=== PATIENT | male | born 1990 | race African-American/Black ===

== ENCOUNTER 2023-07-05 12:20 | Emergency (ER) | payer OTHER ==
[~2023-07-05] VITALS: Ht 185.4 cm; Wt 105.0 kg
[2023-07-05 12:26] VITALS: O2SAT 100
[2023-07-05] MEDS: PREDNISONE 20MG TABLET PO ONE (13:53)
[2023-07-05] MEDS: OXYCODONE HCL/ACETAMINOPHEN 5/325MG TABLET PO ONE (13:53)
[2023-07-05] MEDS ORDERED: OXYC-100 MT (15:33)
[2023-07-05] MEDS ORDERED: P20 PO (15:33)
[2023-07-05] MEDS: KETOROLAC 60MG/2ML VIAL IM ONE (16:28)
[2023-07-05 16:29] VITALS: BP 138/57; PULSE 67; RESP 18; TEMP 98.5
== END 2023-07-05 16:31 | disposition home or self-care (01) ==
LOC: ER 12:31 → EDBD 12:31 → ER 16:31
DX: M54.16 Radiculopathy, lumbar region (principal)
CPT/HCPCS: 72110; 96372; 99283; J7512; J1885; Z7610 ×2

== ENCOUNTER 2023-08-17 11:39 | Emergency (ER) | payer MEDICAID, OTHER ==
[~2023-08-17] VITALS: Ht 185.4 cm; Wt 104.0 kg
[~2023-08-17 11:39] MED LIST: OXYC-100 MT; P20 PO
[2023-08-17 11:52] VITALS: O2SAT 98
[2023-08-17] MEDS: IBUPROFEN 400MG TABLET PO ONE (13:48)
[2023-08-17] MEDS: CYCLOBENZAPRINE 10MG TABLET PO ONE (13:48)
[2023-08-17 14:49] VITALS: BP 133/88; PULSE 76; RESP 16; TEMP 98.1
[2023-08-17] MEDS ORDERED: NAPR-681 MT (15:52)
[2023-08-17] MEDS ORDERED: CYCL10TA21 MT (15:52)
== END 2023-08-17 16:14 | disposition home or self-care (01) ==
LOC: ER 11:39
DX: M51.26 Other intervertebral disc displacement, lumbar region (principal)
CPT/HCPCS: 72128; 72131; 72192; 99284; Z7610